=== PATIENT | female | born 1985 | race Caucasian/White ===

== ENCOUNTER 2019-06-11 18:37 | Emergency (ER) | payer OTHER ==
[~2019-06-11] VITALS: Ht 170.2 cm; Wt 91.1 kg
[2019-06-11 18:38] VITALS: BP 134/84
[2019-06-11] MEDS ORDERED: LOW-1TAB2 (18:42)
[2019-06-11] MEDS ORDERED: CITA40TA4 (18:42)
[2019-06-11] MEDS ORDERED: LIDOCAINE 1% MDV 20ML VIAL SC ONE (19:45)
--- NOTE | 2019-06-11 20:00 | REP ---
Clinical: Trauma. Technique: AP, lateral, bilateral oblique views right hand . Findings: The osseous structures and joint spaces are intact and normal. There is no evidence for acute fracture or dislocation. Surrounding soft tissues are unremarkable. No subcutaneous emphysema or radiodense foreign body. Impression: No acute fracture or dislocation. Electronically Signed by Fletcher Arnold MD 06/11/2019 07:51 P
--- NOTE | 2019-06-11 20:01 | REP ---
Clinical: Trauma . Technique: AP, lateral, bilateral oblique views of the right elbow. Findings: No acute fracture or dislocation is appreciated. Joint spaces and surrounding soft tissues appear normal. Lateral view demonstrates normal positioning to the anterior and posterior fat pads without evidence for effusion/hemarthrosis. No subcutaneous emphysema or foreign body identified. Impression: Normal right elbow radiographs. Electronically Signed by Fletcher Arnold MD 06/11/2019 07:52 P
[2019-06-11] MEDS ORDERED: KETOROLAC 60 MG/2 ML VIAL (J1885) IM ONE (20:30)
== END 2019-06-11 20:56 | disposition home or self-care (01) ==
LOC: M ED 18:37
DX: S61.011A Laceration without foreign body of right thumb without damage to nail, initial encounter (principal); M79.601 Pain in right arm; V48.5XXA Car driver injured in noncollision transport accident in traffic accident, initial encounter; Y92.9 Unspecified place or not applicable; Y93.9 Activity, unspecified; Y99.9 Unspecified external cause status; Z88.0 Allergy status to penicillin; Z88.8 Allergy status to other drugs, medicaments and biological substances
CPT/HCPCS: 12001; 73080; 73130; 96372; 99284; J1885